=== PATIENT | female | born 1950 | race Caucasian/White ===

== ENCOUNTER 2018-01-13 11:12 | Inpatient (IN) ==
[2018-01-13 12:00] LABS: Baso % (Auto) 0.4 % (0.0-2.0); Hematocrit 29.5 % (35.0-46.0); Mean Corpuscular Hemoglobin 35.1 pg (27.0-34.0); Mean Corpuscular Volume 103.3 fL (80.0-100.0); Mean Platelet Volume 8.6 fL (7.0-11.0); Mono # (Auto) 0.5 th/mm3 (0.0-0.9); Mono % (Auto) 4.1 % (0.0-8.0); Neut # (Auto) 9.4 th/mm3 (1.8-7.7); Neut % (Auto) 86.5 % (16.0-70.0); Platelet Count 233 th/mm3 (150-450); Red Blood Count 2.85 mil/mm3 (4.00-5.30); Red Cell Distribution Width 14.9 % (11.6-17.2); White Blood Count 10.9 th/mm3 (4.0-11.0)
[2018-01-13 12:10] LABS: Activated Partial Thrombo Time 22.8 sec (23.4-31.7); Prothrombin Time 10.5 sec (9.8-11.6)
[2018-01-13 12:25] LABS: Albumin 3.4 g/dL (3.4-5.0); Anion Gap 8 meq/L (5-15); Aspartate Aminotransferase 22 U/L (15-37); Blood Urea Nitrogen 43 mg/dL (7-18); Calcium 8.5 mg/dL (8.5-10.1); Carbon Dioxide 24.8 meq/L (21.0-32.0); Chloride 108 meq/L (98-107); Glomerular Filtration Rate 77 mL/min (>89); Glucose,Random 120 mg/dL (74-106); Potassium 3.9 meq/L (3.5-5.1); Sodium 141 meq/L (136-145)
[2018-01-13 12:26] LABS: Alanine Aminotransferase 35 U/L (10-53)
[2018-01-13 12:28] LABS: Alkaline Phosphatase 51 U/L (45-117); Total Protein 6.3 g/dL (6.4-8.2)
[2018-01-13 13:46] LABS: Bilirubin,Urine Negative (Negative); Clarity,Urine Clear (Clear); Color,Urine Yellow (Yellw/Straw); Glucose,Urine (UA) Negative (Negative); Leukocyte Esterase,Urine Negative (Negative); Mucus,Urine Few /lpf (Occasional); Nitrite,Urine Negative (Negative); Specific Gravity,Urine 1.021 (1.002-1.035)
[2018-01-13] MEDS ORDERED: Pantoprazole Inj 40 MG Vial IV.PUSH ONE (14:55)
--- NOTE | 2018-01-13 15:09 | ED ---
HPI General Chief complaint: Syncope Stated complaint: syncope Time Seen by Provider: 01/13/18 14:54 History of Present Illness HPI narrative: This is a 67-year-old female who presents with her friend for evaluation of syncopal events. The patient is currently on vacation from [place]. She reports that for the past week she has had dark colored stools. This morning at 4:30 AM she was walking to the bathroom when she passed out. 30 minutes later she had another syncopal event when walking to the bathroom. Her friend found her sweaty. There was no seizure activity. The patient was not postictal. The patient reports that 10 years ago she had a gastric ulcer which was bleeding and she had similar dark stools at that time. She reports syncope at that time as well. She is not on any blood thinning medications. She is currently planning on some pain and bruising in the right periorbital region as well as some pain to the coccyx region from when she fell. She is denying any headache, dizziness, lightheadedness, nausea, vomiting, chest pain, shortness of breath, palpitations, abdominal pain. She has no other complaints at this time. Related Data Allergies Allergy/AdvReac Type Severity Reaction Status Date / Time Penicillins Allergy Hives Verified 01/13/18 11:29 Review of Systems ROS: all other systems reviewed are negative [facility] Medical History Medical History Gastric ulcer (Acute) Surgical History Surgical History No history of previous surgery (Acute) Social History Social History Second Hand Smoke Exposure: No Smoking Status: Never smoker How Often Do You Have a Drink Containing Alcohol: Never Recent Travel in [facility] within the Last 8 Weeks: No Recent Out of Country Travel within the Last 8 Weeks: No Exam Narrative Exam Narrative: GENERAL: Well-developed well-nourished female no acute distress SKIN: Warm and dry. Right-sided periorbital ecchymosis is noted. HEAD: Atraumatic. Normocephalic. EYES: Pupils equal and round reactive to light extraocular muscles are intact no proptosis. No scleral icterus. No injection or drainage. ENT: No nasal bleeding or discharge. Mucous membranes pink and moist. Some tenderness to palpation to the lateral right orbit and right lower maxilla region. No bony step-offs. NECK: Trachea midline. No JVD. CARDIOVASCULAR: Regular rate and rhythm. No murmur appreciated. RESPIRATORY: No accessory muscle use. Clear to auscultation. Breath sounds equal bilaterally. GASTROINTESTINAL: Abdomen soft, non-tender, nondistended. Hepatic and splenic margins not palpable. Rectal examination reveals black Hemoccult positive stool. MUSCULOSKELETAL: No obvious deformities. Mild tenderness to palpation to the right sacral region. No ecchymosis. No edema. NEUROLOGICAL: Awake and alert. No obvious cranial nerve deficits. Motor grossly within normal limits. Normal speech. Course Initial Documented Vital Signs Temperature 98.5 F 01/13/18 11:21 Pulse Rate 116 H 01/13/18 11:21 Respiratory Rate 17 01/13/18 11:21 Blood Pressure 127/60 01/13/18 11:21 Pulse Oximetry 100 01/13/18 11:21 Last Documented Vital Signs Temperature 98.5 F 01/13/18 11:21 Pulse Rate 116 H 01/13/18 11:21 Respiratory Rate 17 01/13/18 11:21 Blood Pressure 127/60 01/13/18 11:21 Pulse Oximetry 100 01/13/18 11:21 Medical Decision Making ELIZABETH Attestation ELIZABETH supervised visit: Yes Attestation: I, Dr. Bryant, have reviewed the advance practice practitioner's documentation and am in agreement, met with the patient face to face, made the diagnosis, and the medical decision making was done by me. *My assessment and Findings: Pt with syncope and GI bleed w guaiac positive stool. Pt has hx of gastric ulcer approx 10-15 years prior. No pain in ED. Abdominal is soft without tenderness or mass. Skin warm and dry. Neuro: normal memory and mentation, CNIII-XII normal, moving all extremities normalyll=. MDM Narrative Medical decision making narrative: No dark colored stools for 1 week presents after having 2 syncopal events in the middle of the night. On examination she has black stool which is Hemoccult positive consistent with melena. History of gastric ulcers. Protonix administered. The patient is having pain in her right sacral region from the fall as well as some right-sided facial pain. CT of the brain, facial bones, x-ray of the sacrum coccyx and pelvis have been ordered. Imaging studies reveal no acute abnormalities. Hemoglobin is 10, BUN is 43 certainly suggestive of acute GI bleed. Protonix drip initiated. The patient will be admitted for further evaluation and treatment. Medical Screen Exam Complete: Yes Emergency Medical Condition: Yes Differential Diagnosis Differential Diagnosis: Upper GI bleed, acute anemia, syncope, seizure, dehydration, electrolyte abnormality, closed head injury Lab Data Result diagrams: 01/13/18 11:35 01/13/18 11:35 Lab Results 01/13/18 01/13/18 01/13/18 Range/Units 11:35 11:35 11:35 WBC 10.9 (4.0-11.0) th/mm3 RBC 2.85 L (4.00-5.30) mil/mm3 Hgb 10.0 L (11.6-15.3) gm/dL Hct 29.5 L (35.0-46.0) % MCV 103.3 H (80.0-100.0) fL MCH 35.1 H (27.0-34.0) pg MCHC 34.0 (32.0-36.0) % RDW 14.9 (11.6-17.2) % Plt Count 233 (150-450) th/mm3 MPV 8.6 (7.0-11.0) fL Neut % (Auto) 86.5 H (16.0-70.0) % Lymph % (Auto) 9.0 (9.0-44.0) % [place] % (Auto) 4.1 (0.0-8.0) % Eos % (Auto) 0.0 (0.0-4.0) % Baso % (Auto) 0.4 (0.0-2.0) % Neut # (Auto) 9.4 H (1.8-7.7) th/mm3 Lymph # (Auto) 1.0 (1.0-4.8) th/mm3 [place] # (Auto) 0.5 (0.0-0.9) th/mm3 Eos # (Auto) 0.0 (0.0-0.4) th/mm3 Baso # (Auto) 0.0 (0.0-0.2) th/mm3 WBC Differential . Differential Comment Auto diff final PT 10.5 (9.8-11.6) sec INR 1.0 Ratio APTT 22.8 L (23.4-31.7) sec Sodium 141 (136-145) meq/L Potassium 3.9 (3.5-5.1) meq/L Chloride 108 H (98-107) meq/L Carbon Dioxide 24.8 (21.0-32.0) meq/L Anion Gap 8 (5-15) meq/L BUN 43 H (7-18) mg/dL Creatinine 0.75 (0.50-1.00) mg/dL Estimated GFR 77 L (>89) mL/min Random Glucose 120 H (74-106) mg/dL Calcium 8.5 (8.5-10.1) mg/dL Magnesium (1.5-2.5) mg/dL Total Bilirubin 0.4 (0.2-1.0) mg/dL AST 22 (15-37) U/L ALT 35 (10-53) U/L Alkaline Phosphatase 51 (45-117) U/L Total Creatine Kinase (26-192) U/L Troponin I (0.02-0.05) ng/mL Total Protein 6.3 L (6.4-8.2) g/dL Albumin 3.4 (3.4-5.0) g/dL Urine Color (Yellw/Straw) Urine Clarity (Clear) Urine pH (5.0-8.5) Ur Specific [place] (1.002-1.035) Urine Protein (Neg-Trace) mg/dL Urine Glucose (UA) (Negative) mg/dL Urine Ketones (Negative) mg/dL Urine Occult Blood (Negative) Urine Nitrate (Negative) Urine Bilirubin (Negative) Urine Urobilinogen (Less than 2) mg/dL Ur Leukocyte Esterase (Negative) Urine WBC (0-5) /hpf Urine Mucus (Occasional) /lpf Micro UA Comment Ur Microscopic Review Urine Culture Comments Blood Type Blood Type Recheck Antibody Screen 01/13/18 01/13/18 01/13/18 Range/Units 11:35 12:58 15:04 WBC (4.0-11.0) th/mm3 RBC (4.00-5.30) mil/mm3 Hgb (11.6-15.3) gm/dL Hct (35.0-46.0) % MCV (80.0-100.0) fL MCH (27.0-34.0) pg MCHC (32.0-36.0) % RDW (11.6-17.2) % Plt Count (150-450) th/mm3 MPV (7.0-11.0) fL Neut % (Auto) (16.0-70.0) % Lymph % (Auto) (9.0-44.0) % [place] % (Auto) (0.0-8.0) % Eos % (Auto) (0.0-4.0) % Baso % (Auto) (0.0-2.0) % Neut # (Auto) (1.8-7.7) th/mm3 Lymph # (Auto) (1.0-4.8) th/mm3 [place] # (Auto) (0.0-0.9) th/mm3 Eos # (Auto) (0.0-0.4) th/mm3 Baso # (Auto) (0.0-0.2) th/mm3 WBC Differential Differential Comment PT (9.8-11.6) sec INR Ratio APTT (23.4-31.7) sec Sodium (136-145) meq/L Potassium (3.5-5.1) meq/L Chloride (98-107) meq/L Carbon Dioxide (21.0-32.0) meq/L Anion Gap (5-15) meq/L BUN (7-18) mg/dL Creatinine (0.50-1.00) mg/dL Estimated GFR (>89) mL/min Random Glucose (74-106) mg/dL Calcium (8.5-10.1) mg/dL Magnesium 1.9 (1.5-2.5) mg/dL Total Bilirubin (0.2-1.0) mg/dL AST (15-37) U/L ALT (10-53) U/L Alkaline Phosphatase (45-117) U/L Total Creatine Kinase 100 (26-192) U/L Troponin I Less than 0.02 L (0.02-0.05) ng/mL Total Protein (6.4-8.2) g/dL Albumin (3.4-5.0) g/dL Urine Color Yellow (Yellw/Straw) Urine Clarity Clear (Clear) Urine pH 6.0 (5.0-8.5) Ur Specific [place] 1.021 (1.002-1.035) Urine Protein Negative (Neg-Trace) mg/dL Urine Glucose (UA) Negative (Negative) mg/dL Urine Ketones Trace H (Negative) mg/dL Urine Occult Blood Negative (Negative) Urine Nitrate Negative (Negative) Urine Bilirubin Negative (Negative) Urine Urobilinogen Less than 2 (Less than 2) mg/dL Ur Leukocyte Esterase Negative (Negative) Urine WBC Less than 1 (0-5) /hpf Urine Mucus Few H (Occasional) /lpf Micro UA Comment Culture not ind Ur Microscopic Review Not Reportable Urine Culture Comments Culture not ind Blood Type O Positive Blood Type Recheck Required Antibody Screen Negative Imaging Data Radiologist's impression: Face CT 01/13/18 14:55 CONCLUSION: 1. No acute fracture. Partial sphenoid sinus disease. Incidental note made of grade 1 anterolisthesis of C4 on C5, probably degenerative. Head CT 01/13/18 14:55 CONCLUSION: 1. Negative for acute process . Pelvis X-Ray 01/13/18 15:09 CONCLUSION: Negative for fracture or dislocation. Followup in 7-10 days is suggested if symptoms persist. Sacrum and Coccyx X-Ray 01/13/18 15:09 CONCLUSION: Negative for fracture Discharge Plan Discharge Disposition Patient Disposition: 30 Still Patient Discharge Condition Condition: Stable Discharge Details Diagnosis: Acute upper GI bleed, Syncope Physicians Team ED Provider: Kevin Bryant ED Midlevel Provider: Alirio Alegre Primary Care Provider: Primary Care Candy Enriquez Attending Provider: Jose Maher Status ED Status: Admitted Patient
--- NOTE | 2018-01-13 15:36 | XR ---
EXAM DATE: 01/13/2018 3:28 PM EST AGE/SEX: 67 years / Female INDICATIONS: Trauma to pelvis post fall yesterday CLINICAL DATA: This is the patient's initial encounter. Patient reports that signs and symptoms have been present for 1 day and indicates a pain score of 0/10. MEDICAL/SURGICAL HISTORY: None. None. COMPARISON: No prior exams available for comparison. FINDINGS: Examination of the pelvis demonstrates no evidence of fracture or dislocation. Bony mineralization i s normal. There is no widening of the sacroiliac joints. No foreign body is identified. CONCLUSION: Negative for fracture or dislocation. Followup in 7-10 days is suggested if symptoms persist. Electronically signed by: Christopher Patton MD 01/13/2018 3:35 PM EST
--- NOTE | 2018-01-13 15:38 | XR ---
EXAM DATE: 01/13/2018 3:29 PM EST AGE/SEX: 67 years / Female INDICATIONS: Tailbone pain post fall yesterday CLINICAL DATA: This is the patient's initial encounter. Patient reports that signs and symptoms have been present for 1 day and indicates a pain score of 8/10. MEDICAL/SURGICAL HISTORY: None. None. COMPARISON: [facility] [place], PELVIS AP 1V, 01/13/2018. . FINDINGS: Two-view examination of the sacrum and coccyx demonstrates no evidence of fracture or malalignment. The sacral ala and foramina appear symmetric and intact. The coccyx appears unremarkable. The preve rtebral soft tissues are within normal limits. CONCLUSION: Negative for fracture Electronically signed by: Christopher Patton MD 01/13/2018 3:37 PM EST
--- NOTE | 2018-01-13 15:39 | CT ---
EXAM DATE: 01/13/2018 3:36 PM EST AGE/SEX: 67 years / Female INDICATIONS: Syncope today. Patient fell, bruised right eye and has bump on back of head. CLINICAL DATA: This is the patient's initial encounter. Patient reports that signs and symptoms have been present for 1 day and indicates a pain score of 5/10. MEDICAL/SURGICAL HISTORY: None. None. RADIATION DOSE: 45.79 CTDI (mGy) COMPARISON: No prior exams available for comparison. TECHNIQUE: CT of the head without contrast. Using automated exposure control and adjustment of the mA and/or kV according to patient size, radiation dose was kept as low as reasonably achievable to ob tain optimal diagnostic quality images. DICOM format image data is available electronically for revi ew and comparison. FINDINGS: Cerebrum: The ventricles are normal for age. No evidence of midline shift, mass lesion, hemorrhage or acute infarction. No extraaxial fluid collections are seen. Posterior Fossa: The cerebellum and brainstem are intact. The 4th ventricle is midline. The cerebe llopontine angle is unremarkable. Extracranial: The visualized portion of the orbits is intact. Skull: The calvaria is intact. No evidence of skull fracture. CONCLUSION: 1. Negative for acute process . Electronically signed by: Christopher Patton MD 01/13/2018 3:38 PM EST
[2018-01-13 15:54] LABS: Magnesium 1.9 mg/dL (1.5-2.5)
--- NOTE | 2018-01-13 15:54 | CT ---
EXAM DATE: 01/13/2018 3:44 PM EST AGE/SEX: 67 years / Female INDICATIONS: Syncope. Patient fell, bruised right eye and has bump on back of head. CLINICAL DATA: This is the patient's initial encounter. Patient reports that signs and symptoms have been present for 1 day and indicates a pain score of 5/10. MEDICAL/SURGICAL HISTORY: None. None. RADIATION DOSE: 26.50 CTDI (mGy) COMPARISON: No prior exams available for comparison. TECHNIQUE: Contiguous images in the axial and coronal planes were obtained using helical multirow de tector technique. Using automated exposure control and adjustment of the mA and/or kV according to p atient size, radiation dose was kept as low as reasonably achievable to obtain optimal diagnostic corry lity images. DICOM format image data is available electronically for review and comparison. FINDINGS: No acute fracture identified. Partial opacification of a small septated right anterior sphenoid sinus . Remainder the paranasal sinuses are clear. Globes are intact. No soft tissue masses. CONCLUSION: 1. No acute fracture. Partial sphenoid sinus disease. Incidental note made of grade 1 anterolisthesi s of C4 on C5, probably degenerative. Electronically signed by: Gray Mancilla MD 01/13/2018 3:52 PM EST
[2018-01-13 15:59] LABS: Creatine Kinase 100 U/L (26-192)
[2018-01-13] MEDS: Pantoprazole Inj 80 MG in Sodium Chlor 0.9% Inj 100 ML IV.CONT SCH (16:30)
--- NOTE | 2018-01-13 17:15 | P.HPIM ---
History of Present Illness Primary Care Physician: No Primary Care Physician Chief Complaint: Passed out History of Present Illness: The patient is a 67-year-old female with a past medical history of bleeding ulcer and rheumatoid arthritis who is presenting to the hospital following syncopal episodes. The patient states she woke up early this morning and went to the bathroom where she had dark stools that she described as loose. She says on her way back she fainted and woke up on the floor. She thinks she was unconscious for a few seconds. She denies any pain. She says later on she was going to the bathroom and she fainted again and had a bowel movement where she fell down. She says she lost consciousness again. She denied any seizure activity. She says that she has had a bleeding ulcer in the past. She said she also passed out when she had a bleeding ulcer. She denies using NSAIDs regularly. She does not drink alcohol. She does take methotrexate for rheumatoid arthritis. She says she was taking a proton pump inhibitor for a period of time but that was discontinued a while ago. Inpatient Certification: I certify that the inpatient services were ordered in accordance with Medicare regulations governing the order. This includes certification that hospital inpatient services are reasonable and necessary and in the case of services not specified as inpatient-only under 42 CFR 419.22(n), that they are appropriately provided as inpatient services in accordance to with the 2-midnight benchmark under 43 CFR 412.3(e) Estimated Total Length of Stay (Days): 2 Plans for Post Hospital Care: Home Review of Systems All other systems reviewed negative except as stated in HPI PMFSH - History History Provided By: Patient - Medical History Medical History: Medical History (Last Updated 01/13/18 @ 17:10 by Jose Maher DO) Gastric ulcer Rheumatoid arthritis - Surgical History Surgical History: Surgical History (Last Reviewed 01/13/18 @ 17:10 by Jose Maher DO) No history of previous surgery - Family History Family History: Family History (Last Updated 01/13/18 @ 17:10 by Jose Maher DO) Other Patient denies significant medical history - Social History I have reviewed the patient's Social History: Yes - Tobacco History Second Hand Smoke Exposure: No Smoking Status: Never smoker - Alcohol History How Often Do You Have a Drink Containing Alcohol: Never - Travel History Recent Travel in the [place] Within the Last 8 Weeks: No Recent Travel Out of the Country Within the Last 8 Weeks: No - Immunization History Tetanus Immunization: <5 Years Medications and Allergies Active Medications: Active Medications Acetaminophen (Tylenol) 650 mg PO Q4H PRN PRN Reason: Temp > 100.4, pain 1-2 Pantoprazole Sodium 80 mg/ (Sodium Chloride) 100 mls @ 10 mls/hr IV.CONT CONT SANDY Last Admin: 01/13/18 16:30 Dose: 10 mls/hr Sodium Chloride (Ns Inj) 1,000 mls @ 100 mls/hr IV.CONT .Q10H SANDY Lactulose (Lactulose Liq) 30 ml PO DAILY PRN PRN Reason: SEVERE CONSITIPATION Ondansetron HCl (Zofran Inj) 4 mg IV.PUSH Q6H PRN PRN Reason: NAUSEA OR VOMITING Allergies Allergy/AdvReac Type Severity Reaction Status Date / Time Penicillins Allergy Hives Verified 01/13/18 11:29 Exam Vital signs: Vital Signs 01/13/18 11:21 Temperature 98.5 F Pulse Rate 116 H Respiratory Rate 17 Blood Pressure 127/60 Pulse Oximetry 100 Intake & Output 01/12/18 01/13/18 01/13/18 18:59 06:59 18:59 Weight 54.431 kg Narrative: GENERAL: Well-developed well-nourished female in no acute distress. SKIN: Warm and dry. Right-sided periorbital ecchymosis is noted. HEAD: Atraumatic. Normocephalic. EYES: Pupils equal and round reactive to light extraocular muscles are intact no proptosis. No scleral icterus. No injection or drainage. ENT: No nasal bleeding or discharge. Mucous membranes pink and moist. NECK: Trachea midline. No JVD. CARDIOVASCULAR: Tachycardic. No murmur appreciated. RESPIRATORY: No accessory muscle use. Clear to auscultation. Breath sounds equal bilaterally. GASTROINTESTINAL: Abdomen soft, non-tender, nondistended. Hepatic and splenic margins not palpable. MUSCULOSKELETAL: No obvious deformities. Mild tenderness to palpation to the right sacral region. No ecchymosis. No edema. NEUROLOGICAL: Awake and alert. No obvious cranial nerve deficits. Motor grossly within normal limits. Normal speech. Results - Labs CBC & Chem 7: 01/13/18 11:35 01/13/18 11:35 Labs: Short CBC 01/13/18 Range/Units 11:35 WBC 10.9 (4.0-11.0) th/mm3 Hgb 10.0 L (11.6-15.3) gm/dL Hct 29.5 L (35.0-46.0) % Plt Count 233 (150-450) th/mm3 BMP 01/13/18 11:35 Sodium 141 Potassium 3.9 Chloride 108 H Carbon Dioxide 24.8 BUN 43 H Creatinine 0.75 Calcium 8.5 Cardiac Enzymes 01/13/18 Range/Units 15:04 Total Creatine Kinase 100 (26-192) U/L Troponin I Less than 0.02 L (0.02-0.05) ng/mL Liver Function 01/13/18 Range/Units 11:35 Total Bilirubin 0.4 (0.2-1.0) mg/dL AST 22 (15-37) U/L ALT 35 (10-53) U/L Alkaline Phosphatase 51 (45-117) U/L Albumin 3.4 (3.4-5.0) g/dL Urine 01/13/18 Range/Units 12:58 Urine Color Yellow (Yellw/Straw) Urine Clarity Clear (Clear) Urine pH 6.0 (5.0-8.5) Ur Specific [place] 1.021 (1.002-1.035) Urine Protein Negative (Neg-Trace) mg/dL Urine Glucose (UA) Negative (Negative) mg/dL - Imaging Impressions Face CT 01/13/18 14:55 CONCLUSION: 1. No acute fracture. Partial sphenoid sinus disease. Incidental note made of grade 1 anterolisthesis of C4 on C5, probably degenerative. Head CT 01/13/18 14:55 CONCLUSION: 1. Negative for acute process . Pelvis X-Ray 01/13/18 15:09 CONCLUSION: Negative for fracture or dislocation. Followup in 7-10 days is suggested if symptoms persist. Sacrum and Coccyx X-Ray 01/13/18 15:09 CONCLUSION: Negative for fracture Caprini VTE Risk Assessment Caprini VTE Risk Assessment: Moderate/High Risk (score >= 2) Caprini Risk Assessment Model: Point Value = 1 Point Value = 2 Point Value = 3 Point Value = 5 Age 41-60 Minor surgery BMI > 25 kg/m2 Swollen legs Varicose veins or History of unexplained or recurrent spontaneous Oral contraceptives or hormone replacement Sepsis (< 1 month) Serious lung disease, including pneumonia (< 1 month) Abnormal pulmonary function Acute myocardial infarction Congestive heart failure (< 1 month) History of inflammatory bowel disease Medical patient at bed rest Age 61-74 Arthroscopic surgery Major open surgery (> 45 min) Laparoscopic surgery (> 45 min) Malignancy Confined to bed (> 72 hours) Immobilizing plaster cast Central venous access Age >= 75 History of VTE Family history of VTE Factor V Leiden Prothrombin [id number] Lupus anticoagulant Anticardiolipin antibodies Elevated serum homocysteine Heparin-induced thrombocytopenia Other congenital or acquired thrombophilia Stroke (< 1 month) Elective arthroplasty Hip, pelvis, or leg fracture Acute spinal cord injury (< 1 month) Prophylaxis Regimen: Total Risk Factor Score Risk Level Prophylaxis Regimen 0-1 Low Early ambulation 2 Moderate Order ONE of the following: *Sequential Compression Device (SCD) *Heparin 5000 units SQ BID 3-4 Higher Order ONE of the following medications: *Heparin 5000 units SQ TID *Enoxaparin/Lovenox 40 mg SQ daily (WT < 150 kg, CrCl > 30 mL/min) *Enoxaparin/Lovenox 30 mg SQ daily (WT < 150 kg, CrCl > 10-29 mL/min) *Enoxaparin/Lovenox 30 mg SQ BID (WT < 150 kg, CrCl > 30 mL/min) AND/OR *Sequential Compression Device (SCD) 5 or more Highest Order ONE of the following medications: *Heparin 5000 units SQ TID (Preferred with Epidurals) *Enoxaparin/Lovenox 40 mg SQ daily (WT < 150 kg, CrCl > 30 mL/min) *Enoxaparin/Lovenox 30 mg SQ daily (WT < 150 kg, CrCl > 10-29 mL/min) *Enoxaparin/Lovenox 30 mg SQ BID (WT < 150 kg, CrCl > 30 mL/min) AND *Sequential Compression Device (SCD) Assessment and Plan - Plan GI bleed/ Syncope The patient had dark stools that were Hemoccult positive in the emergency department. She has had a bleeding ulcer in the past and has had syncopal episodes associated with it. She is on methotrexate. -PPI gtt. -NPO with IVFs. -follow CBC and transfuse as needed. -GI consult pending. Tachycardia Likely secondary to anemia and GI bleed. -Check an EKG. -IV fluids. -Monitor on telemetry. RA On methotrexate weekly. -hold methotrexate. PPx: SCDs. Pharmacotherapy contraindicated in the setting of GI bleed.
[2018-01-13] MEDS: Sod Chloride 0.9% Inj 1,000 ML IV.CONT SCH (19:52)
[2018-01-13 22:43] LABS: Hematocrit 25.8 % (35.0-46.0); Hemoglobin 8.6 gm/dL (11.6-15.3); Mean Corpuscular HGB Conc 33.5 % (32.0-36.0); Mean Corpuscular Hemoglobin 33.9 pg (27.0-34.0); Mean Corpuscular Volume 101.3 fL (80.0-100.0); Mean Platelet Volume 8.4 fL (7.0-11.0); Platelet Count 215 th/mm3 (150-450); Red Blood Count 2.54 mil/mm3 (4.00-5.30); Red Cell Distribution Width 15.3 % (11.6-17.2)
[2018-01-14] MEDS: Pantoprazole Inj 80 MG in Sodium Chlor 0.9% Inj 100 ML IV.CONT SCH ×3 (02:01→21:58)
[2018-01-14 05:35] LABS: Baso # (Auto) 0.1 th/mm3 (0.0-0.2); Baso % (Auto) 0.8 % (0.0-2.0); Eos # (Auto) 0.1 th/mm3 (0.0-0.4); Eos % (Auto) 1.4 % (0.0-4.0); Hematocrit 24.5 % (35.0-46.0); Hemoglobin 8.2 gm/dL (11.6-15.3); Lymph # (Auto) 1.2 th/mm3 (1.0-4.8); Lymph % (Auto) 18.6 % (9.0-44.0); Mean Corpuscular HGB Conc 33.6 % (32.0-36.0); Mean Corpuscular Hemoglobin 34.5 pg (27.0-34.0); Mean Corpuscular Volume 102.5 fL (80.0-100.0); Mean Platelet Volume 8.3 fL (7.0-11.0); Mono # (Auto) 0.7 th/mm3 (0.0-0.9); Mono % (Auto) 10.6 % (0.0-8.0); Neut # (Auto) 4.6 th/mm3 (1.8-7.7); Neut % (Auto) 68.6 % (16.0-70.0); Platelet Count 203 th/mm3 (150-450); Red Blood Count 2.39 mil/mm3 (4.00-5.30); Red Cell Distribution Width 14.9 % (11.6-17.2); White Blood Count 6.7 th/mm3 (4.0-11.0)
[2018-01-14] MEDS: Sod Chloride 0.9% Inj 1,000 ML IV.CONT SCH (05:36)
[2018-01-14 06:32] LABS: Alanine Aminotransferase 26 U/L (10-53); Albumin 2.7 g/dL (3.4-5.0); Alkaline Phosphatase 37 U/L (45-117); Anion Gap 8 meq/L (5-15); Aspartate Aminotransferase 23 U/L (15-37); Blood Urea Nitrogen 22 mg/dL (7-18); Calcium 7.9 mg/dL (8.5-10.1); Chloride 113 meq/L (98-107); Glomerular Filtration Rate 83 mL/min (>89); Glucose,Random 81 mg/dL (74-106); Potassium 3.9 meq/L (3.5-5.1); Sodium 146 meq/L (136-145)
[2018-01-14] MEDS: Acetaminophen 325 MG Tablet PO PRN ×2 (09:49→19:27)
[2018-01-14] MEDS ORDERED: Sodium Chlor 0.9% Inj 250 ML IV.SIG SCH (10:00)
--- NOTE | 2018-01-14 10:21 | P.PNIM ---
Subjective Interval history: Patient reports she has had a headache this morning. No abdominal pain. She has not had a bowel movement since coming into the hospital. No complaint of nausea or vomiting Physical Exam Vital signs: Last Vital Signs Temp 98.4 F 01/14/18 08:00 Pulse 89 01/14/18 08:00 Resp 18 01/14/18 08:00 BP 99/51 L 01/14/18 08:00 Pulse Ox 98 01/14/18 08:00 Intake & Output 01/12/18 01/13/18 01/14/18 01/15/18 06:59 06:59 06:59 06:59 Intake Total 1100 / 1100 Balance 1100 / 1100 Weight 54.5 kg Narrative: GENERAL: This is a well-nourished, well-developed patient, in no apparent distress. CARDIOVASCULAR: Regular rate and rhythm without murmurs, gallops, or rubs. RESPIRATORY: Clear to auscultation. Breath sounds equal bilaterally. No wheezes , rales, or rhonchi. GASTROINTESTINAL: Abdomen soft, non-tender, nondistended. Normal active bowel sounds MUSCULOSKELETAL: Extremities without clubbing, cyanosis, or edema. NEURO: Alert & Oriented x4 to person, place, time, situation. Moves all ext x4 Results Labs CBC & Chem 7: 01/14/18 05:19 01/14/18 05:19 Imaging Imaging: Impressions Face CT 01/13/18 14:55 CONCLUSION: 1. No acute fracture. Partial sphenoid sinus disease. Incidental note made of grade 1 anterolisthesis of C4 on C5, probably degenerative. Head CT 01/13/18 14:55 CONCLUSION: 1. Negative for acute process . Pelvis X-Ray 01/13/18 15:09 CONCLUSION: Negative for fracture or dislocation. Followup in 7-10 days is suggested if symptoms persist. Sacrum and Coccyx X-Ray 01/13/18 15:09 CONCLUSION: Negative for fracture Assessment and Plan (1) Acute upper GI bleed: Code(s): K92.2 - Gastrointestinal hemorrhage, unspecified Status: Acute (2) Anemia: Code(s): D64.9 - Anemia, unspecified Status: Acute Plan 67-year-old white female presents to emergency room with complaints of dark stools and syncope episode 1. Active GI bleed with drop in hemoglobin overnight with acute anemia Continue with Protonix drip. Transfuse 2 units of packed red blood cells, continue IV fluids for supportive care. Monitor hemoglobin hematocrit, GI consult to evaluate for EGD. Keep n.p.o. status. 2. Acute anemia due to GI bleed-monitor hemoglobin and transfuse 2 units of packed red blood cells today. 3. History of rheumatoid arthritis -hold methotrexate 4. DVT prophylaxisbilateral SCDs, pharmacologic anticoagulation contraindicated in the setting of GI bleed 5. Hypernatremiadue to normal saline will change to half-normal saline. Progress Note: Quality VTE Deep Vein Thrombosis/Pulmonary Embolism Present on Admission: No
--- NOTE | 2018-01-14 11:07 | P.CONGI ---
History of Present Illness Consult date: 01/14/18 Consult reason: GI bleed Melena stools Chief complaint: Upper GI Bleed, Syncope History of Present Illness: This patient is a 67-year-old female with past medical history of gastric ulcer , rheumatoid arthritis for which she takes methotrexate. Surgical history includes umbilical hernia repair 66. She presented to the [facility] following 2 syncopal episodes. Upon consultation, patient reports she noted dark stools 1 week ago. She states her stools were loose. Patient states that she attributed loose dark stools to increased intake of green leafy vegetables while on vacation. Patient endorses associated sensation of incomplete defecation for 1 week. Patient states she has history of bleeding ulcer and had last EGD done 15 years ago with repair for same. Patient denies taking any PPI at this time and reports she has not been on some for "quite a while". Denies dysphagia, abdominal pain, nausea or vomiting. Patient states she had 2 syncopal episodes on 01/12/2018 while returning to her bedroom from bathroom after having a loose dark stool. Patient denies any use of NSAIDs or aspirin. Denies use of tobacco or alcohol products. Denies any known family history for gastrointestinal disorders. Patient endorses last colonoscopy done 3 years ago-normal findings per patient. <Margie Duong - Last Filed: 01/14/18 10:56> Chief complaint: Upper GI Bleed, Syncope <Danna Ayala - Last Filed: 01/14/18 14:45> Review of Systems All other systems reviewed negative except as stated in HPI <Margie Duong - Last Filed: 01/14/18 10:56> PMFSH - History History Provided By: Patient - Medical History Medical History: Medical History (Last Updated 01/13/18 @ 17:10 by Jose Maher DO) Gastric ulcer Rheumatoid arthritis - Surgical History Surgical History: Surgical History (Last Reviewed 01/13/18 @ 17:10 by Jose Maher DO) No history of previous surgery - Family History Family History: Family History (Last Updated 01/13/18 @ 17:10 by Jose Maher DO) Other Patient denies significant medical history - Tobacco History Second Hand Smoke Exposure: No Tobacco Use In Past 30 Days: No Smoking Status: Never smoker - Alcohol History How Often Do You Have a Drink Containing Alcohol: Monthly or less - Substance Use History Substance History: No History of Abuse - Travel History Recent Travel in the [place] Within the Last 8 Weeks: No Recent Travel Out of the Country Within the Last 8 Weeks: No - Immunization History Tetanus Immunization: <5 Years Hx Influenza Vaccine This Season: Yes <Margie Duong - Last Filed: 01/14/18 10:56> - Medical History Medical History: Medical History (Last Updated 01/13/18 @ 17:10 by Jose Maher DO) Gastric ulcer Rheumatoid arthritis - Surgical History Surgical History: Surgical History (Last Reviewed 01/13/18 @ 17:10 by Jose Maher DO) No history of previous surgery - Family History Family History: Family History (Last Updated 01/13/18 @ 17:10 by Jose Maher DO) Other Patient denies significant medical history <Danna Ayala - Last Filed: 01/14/18 14:45> Medications and Allergies Active Medications: Active Medications Acetaminophen (Tylenol) 650 mg PO Q4H PRN PRN Reason: Temp > 100.4, pain 1-2 Last Admin: 01/14/18 09:49 Dose: 650 mg Pantoprazole Sodium 80 mg/ (Sodium Chloride) 100 mls @ 10 mls/hr IV.CONT CONT SANDY Last Admin: 01/14/18 02:01 Dose: 10 mls/hr Sodium Chloride (Ns Inj) 250 mls @ 15 mls/hr IV.SIG ONCE SANDY Stop: 01/15/18 02:39 Sodium Chloride (1/2 Normal Saline Inj) 1,000 mls @ 84 mls/hr IV.CONT .[id number] SANDY Lactulose (Lactulose Liq) 30 ml PO DAILY PRN PRN Reason: SEVERE CONSITIPATION Ondansetron HCl (Zofran Inj) 4 mg IV.PUSH Q6H PRN PRN Reason: NAUSEA OR VOMITING <Margie Duong - Last Filed: 01/14/18 10:56> Active Medications: Active Medications Acetaminophen (Tylenol) 650 mg PO Q4H PRN PRN Reason: Temp > 100.4, pain 1-2 Last Admin: 01/14/18 09:49 Dose: 650 mg Pantoprazole Sodium 80 mg/ (Sodium Chloride) 100 mls @ 10 mls/hr IV.CONT CONT SANDY Last Admin: 01/14/18 11:43 Dose: 10 mls/hr Sodium Chloride (Ns Inj) 250 mls @ 15 mls/hr IV.SIG ONCE SANDY Stop: 01/15/18 02:39 Sodium Chloride (1/2 Normal Saline Inj) 1,000 mls @ 84 mls/hr IV.CONT .[id number] SANDY Lactulose (Lactulose Liq) 30 ml PO DAILY PRN PRN Reason: SEVERE CONSITIPATION Ondansetron HCl (Zofran Inj) 4 mg IV.PUSH Q6H PRN PRN Reason: NAUSEA OR VOMITING <Hemaidan,Ammar - Last Filed: 01/14/18 14:45> Allergies Allergy/AdvReac Type Severity Reaction Status Date / Time Penicillins Allergy Hives Verified 01/13/18 18:10 Home Medications Medication Instructions Recorded Confirmed Type methotrexate 20 mg/m2 PO QWEEK 01/13/18 01/13/18 History Exam Vital signs: Vital Signs 01/13/18 11:21 01/13/18 20:00 01/13/18 22:50 Temperature 98.5 F 98.2 F Pulse Rate 116 H 110 H 91 H Respiratory Rate 17 20 Blood Pressure 127/60 108/59 L Pulse Oximetry 100 97 01/14/18 00:00 01/14/18 04:00 01/14/18 06:23 Temperature 98.6 F 98.1 F Pulse Rate 87 81 80 Respiratory Rate 18 20 Blood Pressure 105/60 94/52 L Pulse Oximetry 97 96 01/14/18 08:00 Temperature 98.4 F Pulse Rate 89 Respiratory Rate 18 Blood Pressure 99/51 L Pulse Oximetry 98 Intake & Output 01/13/18 01/14/18 01/14/18 18:59 06:59 18:59 Intake Total 1100 / 1100 Balance 1100 / 1100 Weight 54.431 kg 54.5 kg Intake: IV 1100 / 1100 Protonix Inj 80 MG In NS Inj 100 / 100 100 ML @ 10 mls/hr IV.CONT CONT SANDY Rx#:[id number] NS Inj 1,000 ML @ 100 mls/hr IV 1000 / 1000 .CONT .Q10H SANDY Rx#:[id number] Other: # Voids 3 Date of Last Bowel Movement 01/13/18 - Constitutional no acute distress - Routine HEENT Exam Head: Present: normocephalic Eye: Present: periorbital ecchymosis - Routine Respiratory Exam Present: CTA bilaterally. Absent: accessory muscle use - Routine Cardiovascular Exam Present: S1, S2 - Routine Abdominal Exam Present: soft, normoactive bowel sounds. Absent: tenderness, distended, guarding, firm - Routine Extremities Exam Absent: edema - Routine Skin Exam Present: dry, warm. Absent: pallor - Routine Neurological Exam Present: alert, oriented X3 <Duong,Margie - Last Filed: 01/14/18 10:56> Vital signs: Vital Signs 01/13/18 20:00 01/13/18 22:50 01/14/18 00:00 Temperature 98.2 F 98.6 F Pulse Rate 110 H 91 H 87 Respiratory Rate 20 18 Blood Pressure 108/59 L 105/60 Pulse Oximetry 97 97 01/14/18 04:00 01/14/18 06:23 01/14/18 08:00 Temperature 98.1 F 98.4 F Pulse Rate 81 80 89 Respiratory Rate 20 18 Blood Pressure 94/52 L 99/51 L Pulse Oximetry 96 98 01/14/18 12:00 01/14/18 12:23 01/14/18 12:42 Temperature 98.4 F 98 F 98.1 F Pulse Rate 79 77 78 Respiratory Rate 18 14 18 Blood Pressure 108/55 L 108/55 L 97/52 L Pulse Oximetry 98 97 01/14/18 14:00 Temperature 97.8 F Pulse Rate 80 Respiratory Rate 18 Blood Pressure 97/56 L Pulse Oximetry 98 Intake & Output 01/13/18 01/14/18 01/14/18 18:59 06:59 18:59 Intake Total 1100 / 1100 100 / 100 Balance 1100 / 1100 100 / 100 Weight 54.431 kg 54.5 kg Intake: IV 1100 / 1100 100 / 100 Protonix Inj 80 MG In NS Inj 100 / 100 100 / 100 100 ML @ 10 mls/hr IV.CONT CONT SANDY Rx#:[id number] NS Inj 1,000 ML @ 100 mls/hr IV 1000 / 1000 .CONT .Q10H SANDY Rx#:[id number] Intake (Blood Product) Amt 0 / 0 Rbc As-3 Leukoreduced Unit 0 / 0 [id number] Other: Other Intake Source Rbc As-3 Leukoreduced Unit Saline Solution [id number] # Voids 3 Date of Last Bowel Movement 01/13/18 <Danna Ayala - Last Filed: 01/14/18 14:45> Results - Labs CBC & Chem 7: 01/14/18 05:19 01/14/18 05:19 Labs: Laboratory Results - last 24 hr 01/13/18 01/13/18 01/13/18 11:35 11:35 11:35 WBC 10.9 RBC 2.85 L Hgb 10.0 L Hct 29.5 L MCV 103.3 H MCH 35.1 H MCHC 34.0 RDW 14.9 Plt Count 233 MPV 8.6 Neut % (Auto) 86.5 H Lymph % (Auto) 9.0 [place] % (Auto) 4.1 Eos % (Auto) 0.0 Baso % (Auto) 0.4 Neut # (Auto) 9.4 H Lymph # (Auto) 1.0 [place] # (Auto) 0.5 Eos # (Auto) 0.0 Baso # (Auto) 0.0 WBC Differential . Differential Comment Auto diff final PT 10.5 INR 1.0 APTT 22.8 L Sodium 141 Potassium 3.9 Chloride 108 H Carbon Dioxide 24.8 Anion Gap 8 BUN 43 H Creatinine 0.75 Estimated GFR 77 L Random Glucose 120 H Calcium 8.5 Magnesium Total Bilirubin 0.4 AST 22 ALT 35 Alkaline Phosphatase 51 Total Creatine Kinase Troponin I Total Protein 6.3 L Albumin 3.4 Urine Color Urine Clarity Urine pH Ur Specific [place] Urine Protein Urine Glucose (UA) Urine Ketones Urine Occult Blood Urine Nitrate Urine Bilirubin Urine Urobilinogen Ur Leukocyte Esterase Urine WBC Urine Mucus Micro UA Comment Ur Microscopic Review Urine Culture Comments Blood Type Blood Type Recheck Antibody Screen MTS Gel Crossmatch 01/13/18 01/13/18 01/13/18 11:35 12:58 15:04 WBC RBC Hgb Hct MCV MCH MCHC RDW Plt Count MPV Neut % (Auto) Lymph % (Auto) [place] % (Auto) Eos % (Auto) Baso % (Auto) Neut # (Auto) Lymph # (Auto) [place] # (Auto) Eos # (Auto) Baso # (Auto) WBC Differential Differential Comment PT INR APTT Sodium Potassium Chloride Carbon Dioxide Anion Gap BUN Creatinine Estimated GFR Random Glucose Calcium Magnesium 1.9 Total Bilirubin AST ALT Alkaline Phosphatase Total Creatine Kinase 100 Troponin I Less than 0.02 L Total Protein Albumin Urine Color Yellow Urine Clarity Clear Urine pH 6.0 Ur Specific [place] 1.021 Urine Protein Negative Urine Glucose (UA) Negative Urine Ketones Trace H Urine Occult Blood Negative Urine Nitrate Negative Urine Bilirubin Negative Urine Urobilinogen Less than 2 Ur Leukocyte Esterase Negative Urine WBC Less than 1 Urine Mucus Few H Micro UA Comment Culture not ind Ur Microscopic Review Not Reportable Urine Culture Comments Culture not ind Blood Type O Positive Blood Type Recheck Required Antibody Screen Negative MTS Gel Crossmatch 01/13/18 01/14/18 01/14/18 22:17 05:19 05:19 WBC 8.0 6.7 RBC 2.54 L 2.39 L Hgb 8.6 L 8.2 L Hct 25.8 L 24.5 L MCV 101.3 H 102.5 H MCH 33.9 34.5 H MCHC 33.5 33.6 RDW 15.3 14.9 Plt Count 215 203 MPV 8.4 8.3 Neut % (Auto) 68.6 Lymph % (Auto) 18.6 [place] % (Auto) 10.6 H Eos % (Auto) 1.4 Baso % (Auto) 0.8 Neut # (Auto) 4.6 Lymph # (Auto) 1.2 [place] # (Auto) 0.7 Eos # (Auto) 0.1 Baso # (Auto) 0.1 WBC Differential . Differential Comment Auto diff final PT INR APTT Sodium 146 H Potassium 3.9 Chloride 113 H Carbon Dioxide 25.0 Anion Gap 8 BUN 22 H Creatinine 0.70 Estimated GFR 83 L Random Glucose 81 Calcium 7.9 L Magnesium Total Bilirubin 0.4 AST 23 ALT 26 Alkaline Phosphatase 37 L Total Creatine Kinase Troponin I Total Protein 5.0 L D Albumin 2.7 L D Urine Color Urine Clarity Urine pH Ur Specific [place] Urine Protein Urine Glucose (UA) Urine Ketones Urine Occult Blood Urine Nitrate Urine Bilirubin Urine Urobilinogen Ur Leukocyte Esterase Urine WBC Urine Mucus Micro UA Comment Ur Microscopic Review Urine Culture Comments Blood Type Blood Type Recheck Antibody Screen MTS Gel Crossmatch 01/14/18 09:49 WBC RBC Hgb Hct MCV MCH MCHC RDW Plt Count MPV Neut % (Auto) Lymph % (Auto) [place] % (Auto) Eos % (Auto) Baso % (Auto) Neut # (Auto) Lymph # (Auto) [place] # (Auto) Eos # (Auto) Baso # (Auto) WBC Differential Differential Comment PT INR APTT Sodium Potassium Chloride Carbon Dioxide Anion Gap BUN Creatinine Estimated GFR Random Glucose Calcium Magnesium Total Bilirubin AST ALT Alkaline Phosphatase Total Creatine Kinase Troponin I Total Protein Albumin Urine Color Urine Clarity Urine pH Ur Specific [place] Urine Protein Urine Glucose (UA) Urine Ketones Urine Occult Blood Urine Nitrate Urine Bilirubin Urine Urobilinogen Ur Leukocyte Esterase Urine WBC Urine Mucus Micro UA Comment Ur Microscopic Review Urine Culture Comments Blood Type Blood Type Recheck Antibody Screen MTS Gel Crossmatch See Detail - Imaging Impressions Face CT 01/13/18 14:55 CONCLUSION: 1. No acute fracture. Partial sphenoid sinus disease. Incidental note made of grade 1 anterolisthesis of C4 on C5, probably degenerative. Head CT 01/13/18 14:55 CONCLUSION: 1. Negative for acute process . Pelvis X-Ray 01/13/18 15:09 CONCLUSION: Negative for fracture or dislocation. Followup in 7-10 days is suggested if symptoms persist. Sacrum and Coccyx X-Ray 01/13/18 15:09 CONCLUSION: Negative for fracture <Margie Duong - Last Filed: 01/14/18 10:56> - Labs CBC & Chem 7: 01/14/18 05:19 01/14/18 05:19 Labs: Laboratory Results - last 24 hr 01/13/18 01/13/18 01/14/18 15:04 22:17 05:19 WBC 8.0 6.7 RBC 2.54 L 2.39 L Hgb 8.6 L 8.2 L Hct 25.8 L 24.5 L MCV 101.3 H 102.5 H MCH 33.9 34.5 H MCHC 33.5 33.6 RDW 15.3 14.9 Plt Count 215 203 MPV 8.4 8.3 Neut % (Auto) 68.6 Lymph % (Auto) 18.6 [place] % (Auto) 10.6 H Eos % (Auto) 1.4 Baso % (Auto) 0.8 Neut # (Auto) 4.6 Lymph # (Auto) 1.2 [place] # (Auto) 0.7 Eos # (Auto) 0.1 Baso # (Auto) 0.1 WBC Differential . Differential Comment Auto diff final Sodium Potassium Chloride Carbon Dioxide Anion Gap BUN Creatinine Estimated GFR Random Glucose Calcium Magnesium 1.9 Total Bilirubin AST ALT Alkaline Phosphatase Total Creatine Kinase 100 Troponin I Less than 0.02 L Total Protein Albumin MTS Gel Crossmatch 01/14/18 01/14/18 05:19 09:49 WBC RBC Hgb Hct MCV MCH MCHC RDW Plt Count MPV Neut % (Auto) Lymph % (Auto) [place] % (Auto) Eos % (Auto) Baso % (Auto) Neut # (Auto) Lymph # (Auto) [place] # (Auto) Eos # (Auto) Baso # (Auto) WBC Differential Differential Comment Sodium 146 H Potassium 3.9 Chloride 113 H Carbon Dioxide 25.0 Anion Gap 8 BUN 22 H Creatinine 0.70 Estimated GFR 83 L Random Glucose 81 Calcium 7.9 L Magnesium Total Bilirubin 0.4 AST 23 ALT 26 Alkaline Phosphatase 37 L Total Creatine Kinase Troponin I Total Protein 5.0 L D Albumin 2.7 L D MTS Gel Crossmatch See Detail - Imaging Impressions Face CT 01/13/18 14:55 CONCLUSION: 1. No acute fracture. Partial sphenoid sinus disease. Incidental note made of grade 1 anterolisthesis of C4 on C5, probably degenerative. Head CT 01/13/18 14:55 CONCLUSION: 1. Negative for acute process . Pelvis X-Ray 01/13/18 15:09 CONCLUSION: Negative for fracture or dislocation. Followup in 7-10 days is suggested if symptoms persist. Sacrum and Coccyx X-Ray 01/13/18 15:09 CONCLUSION: Negative for fracture <Danna Ayala - Last Filed: 01/14/18 14:45> Assessment and Plan (1) Acute upper GI bleed Status: Acute Code(s): K92.2 - Gastrointestinal hemorrhage, unspecified - Plan This patient is a 67-year-old female with past medical history of gastric ulcer , rheumatoid arthritis for which she takes methotrexate. Surgical history includes umbilical hernia repair 66. She presented to the [facility] following 2 syncopal episodes. Upon consultation, patient reports she noted dark stools 1 week ago. She states her stools were loose. Patient states that she attributed loose dark stools to increased intake of green leafy vegetables while on vacation. Patient endorses associated sensation of incomplete defecation for 1 week. Patient states she has history of bleeding ulcer and had last EGD done 15 years ago with repair for same. Patient denies taking any PPI at this time and reports she has not been on some for "quite a while". Denies dysphagia, abdominal pain, nausea or vomiting. Denies hematemesis. Patient states she had 2 syncopal episodes on 01/12/2018 while returning to her bedroom from bathroom after having a loose dark stool. Patient denies any use of NSAIDs or aspirin. Denies use of tobacco or alcohol products. Denies any known family history for gastrointestinal disorders. Patient endorses last colonoscopy done 3 years ago-normal findings per patient. GI bleed Patient endorses 1 week history of noticing dark stools. Syncopal episode x2 prior to admission. States history of gastric ulcer, on no PPIs Last EGD 15 years ago done to to stop bleeding gastric ulcer Hemoglobin 8.2 hematocrit 24.5 platelet count 203 Plan -N.p.o. -Obtain consent for EGD -EGD planned for today -Monitor for bleeding -Transfuse if needed -Continue PPI -Antiemetics PRN -Avoid anticoagulants, NSAIDs, aspirin -Monitor hemoglobin and hematocrit -Supportive care -Further recommendations to follow based on patient status and findings This patient has been seen by myself and Dr. Ayala and this note is written on his behalf - Attending Attestation Dr. Ayala <Margie Duong - Last Filed: 01/14/18 10:56> (1) Acute upper GI bleed Status: Acute Code(s): K92.2 - Gastrointestinal hemorrhage, unspecified - Plan Patient was seen and examined, agree with above note, patient will need upper endoscopy on an urgent basis meanwhile we will continue monitoring H&H with packed RBC as needed <Danna Ayala - Last Filed: 01/14/18 14:45>
--- NOTE | 2018-01-14 14:49 | P.PCN ---
Date of procedure: 01/14/18 Procedure: THANK YOU FOR THE REFERRAL Indication; GI bleed, anemia, syncope Procedure Performed; upper endoscopy with bleeding controlled by injection of epinephrine, cautery, clipping of ulcer, biopsy of the ulcer After informing the patient about procedure and possible complications consent was signed. history and physical were updated. Patient was taken to the procedure room and placed in position. Time out was completed. Adequate sedation was performed by anesthesia provider. Upper Endoscopy, the scope was placed in the mouth advanced under video guide to the second portion of the duodenum, then the scope was withdrawal to the stomach and retro-flexion was performed, the scope was withdrawal to the esophagus then out of the mouth without any immediate complication Findings; Esophagus: Normal Stomach ulcer in the proximal stomach was significant irregularity around it nodularity, the ulcer was actively bleeding with the vessel pumping blood out of it this was cauterized with gold probe, injected with 4 cc of epinephrine, 3 clips were placed with good control at the end of the case Duodenum normal Recommendations; 1- Supportive care 2- ok to transfer to recovery area then discharge per protocol 3-no NSAIDs 4-n.p.o. now 5- E[place] to follow on the ulcer 6-Protonix 40 mg daily 7-monitor H&H with packed RBC as needed
[2018-01-14] MEDS: Sodium Chloride 0.45 % Inj 1,000 ML IV.CONT SCH ×2 (16:07→22:03)
--- NOTE | 2018-01-14 17:49 | ECG ---
Date Performed: 01/13/2018 Time Performed: 15:02:18 PTAGE: 67 years EKG: SINUS TACHYCARDIA WITH SHORT NC INTERVAL ABNORMAL RHYTHM ECG NO PREVIOUS TRACING DOCTOR: Messi Robles Interpretating Date/Time 01/14/2018 17:45:42
[2018-01-15] MEDS: Acetaminophen 325 MG Tablet PO PRN (04:03)
[2018-01-15] MEDS: Sodium Chloride 0.45 % Inj 1,000 ML IV.CONT SCH ×2 (04:04→11:42)
[2018-01-15 07:06] LABS: Baso # (Auto) 0.1 th/mm3 (0.0-0.2); Baso % (Auto) 1.2 % (0.0-2.0); Eos # (Auto) 0.3 th/mm3 (0.0-0.4); Eos % (Auto) 3.9 % (0.0-4.0); Hematocrit 28.2 % (35.0-46.0); Hemoglobin 9.9 gm/dL (11.6-15.3); Lymph # (Auto) 1.2 th/mm3 (1.0-4.8); Lymph % (Auto) 16.6 % (9.0-44.0); Mean Corpuscular HGB Conc 35.2 % (32.0-36.0); Mean Corpuscular Hemoglobin 34.9 pg (27.0-34.0); Mean Corpuscular Volume 99.1 fL (80.0-100.0); Mean Platelet Volume 8.6 fL (7.0-11.0); Mono # (Auto) 0.6 th/mm3 (0.0-0.9); Mono % (Auto) 8.5 % (0.0-8.0); Neut # (Auto) 4.9 th/mm3 (1.8-7.7); Neut % (Auto) 69.8 % (16.0-70.0); Platelet Count 193 th/mm3 (150-450); Red Blood Count 2.85 mil/mm3 (4.00-5.30); Red Cell Distribution Width 16.6 % (11.6-17.2); White Blood Count 7.1 th/mm3 (4.0-11.0)
--- NOTE | 2018-01-15 08:44 | P.PNIM ---
Subjective Interval history: Reports that she is hungry. There is no abdominal pain. No bloody stools. Wants to go home and wants to eat if able. Physical Exam Vital signs: Last Vital Signs Temp 97.9 F 01/15/18 03:58 Pulse 73 01/15/18 04:00 Resp 18 01/15/18 06:25 BP 98/52 L 01/15/18 03:58 Pulse Ox 99 01/15/18 03:58 Intake & Output 01/13/18 01/14/18 01/15/18 01/16/18 06:59 06:59 06:59 06:59 Intake Total 1100 / 1100 2650 / 2650 Balance 1100 / 1100 2650 / 2650 Weight 54.5 kg 55.2 kg Narrative: GENERAL: This is a well-nourished, well-developed patient, in no apparent distress. SKIN: Right periorbital ecchymosis unchanged. CARDIOVASCULAR: Regular rate and rhythm without murmurs, gallops, or rubs. RESPIRATORY: Clear to auscultation. Breath sounds equal bilaterally. No wheezes , rales, or rhonchi. GASTROINTESTINAL: Abdomen soft, non-tender, nondistended. Normal active bowel sounds MUSCULOSKELETAL: Extremities without clubbing, cyanosis, or edema. NEURO: Alert & Oriented x4 to person, place, time, situation. Moves all ext x4 Results Labs CBC & Chem 7: 01/15/18 06:19 01/14/18 05:19 Assessment and Plan (1) Acute upper GI bleed: Code(s): K92.2 - Gastrointestinal hemorrhage, unspecified Status: Acute Plan 67-year-old white female presents to emergency room with complaints of dark stools and syncope episode 1. Active GI bleed with drop in hemoglobin with acute anemia Transition Protonix drip to p.o. Protonix. Status post transfuse 2 units of packed red blood cells with repeat hemoglobin 9.9, continue IV fluids for supportive care. Monitor hemoglobin hematocrit, GI performed EGD on 01/14 with findings of gastric ulcer status post cauterization Will start clear liquids this morning and advance as tolerated. Discharge to home once cleared by GI. 2. Acute anemia due to GI bleed-monitor hemoglobin and status post transfuse 2 units of packed red blood cells yesterday, today's hemoglobin 9.9 3. History of rheumatoid arthritis -hold methotrexate 4. DVT prophylaxisbilateral SCDs, pharmacologic anticoagulation contraindicated in the setting of GI bleed 5. Hypernatremiadue to normal saline will change to half-normal saline. Discharge patient to home Condition on discharge: Improved Regular Diet as tolerated Ad Luann activity Rx written: Protonix 40 mg PO Daily Follow-up with primary care physician Progress Note: Quality VTE Deep Vein Thrombosis/Pulmonary Embolism Present on Admission: No
--- NOTE | 2018-01-15 18:52 | P.PNGI ---
Subjective Interval history: Patient sitting up at bedside Post EGD with cauterization Tolerating clear liquid diet No reported bleeding <Margie Duong - Last Filed: 01/15/18 18:48> Physical Exam Vital signs: Vital Signs 01/14/18 19:29 01/14/18 20:00 01/14/18 21:58 Temperature 98.4 F Pulse Rate 76 81 Respiratory Rate 18 18 Blood Pressure 109/55 L Pulse Oximetry 99 01/14/18 23:58 01/15/18 00:00 01/15/18 03:58 Temperature 98.0 F 97.9 F Pulse Rate 73 77 71 Respiratory Rate 18 18 Blood Pressure 98/54 L 98/52 L Pulse Oximetry 98 99 01/15/18 04:00 01/15/18 06:25 01/15/18 08:00 Temperature 98.2 F Pulse Rate 73 79 Respiratory Rate 18 20 Blood Pressure 97/52 L Pulse Oximetry 98 01/15/18 12:00 01/15/18 16:00 Temperature 98.5 F 98.5 F Pulse Rate 74 74 Respiratory Rate 20 20 Blood Pressure 97/52 L 97/52 L Pulse Oximetry 97 97 Intake & Output 01/14/18 01/15/18 01/15/18 18:59 06:59 18:59 Intake Total 1450 / 1450 1200 / 1200 1350 / 1350 Balance 1450 / 1450 1200 / 1200 1350 / 1350 Weight 55.2 kg 54.7 kg Intake: IV 1100 / 1100 1100 / 1100 1350 / 1350 Protonix Inj 80 MG In NS Inj 100 / 100 100 / 100 100 / 100 100 ML @ 10 mls/hr IV.CONT CONT [facility] Rx#:[id number] NS Inj 1,000 ML @ 100 mls/hr IV 1000 / 1000 .CONT .Q10H [facility] Rx#:[id number] 1/2 Normal Saline Inj 1,000 ML 1000 / 1000 1000 / 1000 @ 84 mls/hr IV.CONT .[id number] [facility] Rx#:[id number] NS Inj 250 ML @ 15 mls/hr IV. 250 / 250 SIG ONCE [facility] Rx#:[id number] Oral 100 / 100 Anesthesia Amount 350 / 350 Intake (Blood Product) Amt 0 / 0 0 / 0 Rbc As-3 Leukoreduced Unit 0 / 0 [id number] Rbc As-3 Leukoreduced Unit 0 / 0 [id number] Other: Other Intake Source Rbc As-3 Leukoreduced Unit Saline Solution [id number] # Voids 4 Date of Last Bowel Movement 01/13/18 01/13/18 01/13/18 Weight On Admission 55.2 kg - Constitutional no acute distress - Routine HEENT Exam Head: Present: normocephalic - Routine Respiratory Exam Absent: accessory muscle use - Routine Abdominal Exam Present: soft, normoactive bowel sounds. Absent: tenderness, guarding, firm - Routine Extremities Exam Absent: edema - Routine Skin Exam Present: dry, warm. Absent: pallor - Routine Neurological Exam Present: alert, oriented X3 - Routine Psychiatric Exam Present: normal affect, cooperative <Duong,Margie - Last Filed: 01/15/18 18:48> Vital signs: Vital Signs 01/14/18 19:29 01/14/18 20:00 01/14/18 21:58 Temperature 98.4 F Pulse Rate 76 81 Respiratory Rate 18 18 Blood Pressure 109/55 L Pulse Oximetry 99 01/14/18 23:58 01/15/18 00:00 01/15/18 03:58 Temperature 98.0 F 97.9 F Pulse Rate 73 77 71 Respiratory Rate 18 18 Blood Pressure 98/54 L 98/52 L Pulse Oximetry 98 99 01/15/18 04:00 01/15/18 06:25 01/15/18 08:00 Temperature 98.2 F Pulse Rate 73 79 Respiratory Rate 18 20 Blood Pressure 97/52 L Pulse Oximetry 98 01/15/18 12:00 01/15/18 16:00 Temperature 98.5 F 98.5 F Pulse Rate 74 74 Respiratory Rate 20 20 Blood Pressure 97/52 L 97/52 L Pulse Oximetry 97 97 Intake & Output 01/15/18 01/15/18 01/16/18 06:59 18:59 06:59 Intake Total 1200 / 1200 1350 / 1350 Balance 1200 / 1200 1350 / 1350 Weight 55.2 kg 54.7 kg Intake: IV 1100 / 1100 1350 / 1350 Protonix Inj 80 MG In NS Inj 100 / 100 100 / 100 100 ML @ 10 mls/hr IV.CONT CONT [facility] Rx#:[id number] 1/2 Normal Saline Inj 1,000 ML 1000 / 1000 1000 / 1000 @ 84 mls/hr IV.CONT .[id number] [facility] Rx#:[id number] NS Inj 250 ML @ 15 mls/hr IV. 250 / 250 SIG ONCE [facility] Rx#:[id number] Oral 100 / 100 Intake (Blood Product) Amt 0 / 0 Rbc As-3 Leukoreduced Unit 0 / 0 [id number] Other: # Voids 4 Date of Last Bowel Movement 01/13/18 01/13/18 Weight On Admission 55.2 kg <Danna Ayala - Last Filed: 01/15/18 19:22> Results - Labs CBC & Chem 7: 01/15/18 15:30 01/14/18 05:19 Laboratory Results - last 24 hr 01/14/18 01/15/18 01/15/18 09:49 06:19 15:30 WBC 7.1 RBC 2.85 L Hgb 9.9 L 9.6 L Hct 28.2 L MCV 99.1 MCH 34.9 H MCHC 35.2 RDW 16.6 Plt Count 193 MPV 8.6 Neut % (Auto) 69.8 Lymph % (Auto) 16.6 Randolph % (Auto) 8.5 H Eos % (Auto) 3.9 Baso % (Auto) 1.2 Neut # (Auto) 4.9 Lymph # (Auto) 1.2 Randolph # (Auto) 0.6 Eos # (Auto) 0.3 Baso # (Auto) 0.1 WBC Differential . Differential Comment Auto diff final MTS Gel Crossmatch See Detail <DuongMargie - Last Filed: 01/15/18 18:48> - Labs CBC & Chem 7: 01/15/18 15:30 01/14/18 05:19 Laboratory Results - last 24 hr 01/14/18 01/15/18 01/15/18 09:49 06:19 15:30 WBC 7.1 RBC 2.85 L Hgb 9.9 L 9.6 L Hct 28.2 L MCV 99.1 MCH 34.9 H MCHC 35.2 RDW 16.6 Plt Count 193 MPV 8.6 Neut % (Auto) 69.8 Lymph % (Auto) 16.6 Randolph % (Auto) 8.5 H Eos % (Auto) 3.9 Baso % (Auto) 1.2 Neut # (Auto) 4.9 Lymph # (Auto) 1.2 Randolph # (Auto) 0.6 Eos # (Auto) 0.3 Baso # (Auto) 0.1 WBC Differential . Differential Comment Auto diff final MTS Gel Crossmatch See Detail <Danna Ayala - Last Filed: 01/15/18 19:22> Assessment and Plan (1) Acute upper GI bleed Status: Acute Code(s): K92.2 - Gastrointestinal hemorrhage, unspecified - Plan 01/15/2018 Patient post EGD with cauterization and clip placement for gastric bleeding ulcer 01/14/2018 EGD revealed the following findings---Esophagus: Normal Stomach ulcer in the proximal stomach was significant irregularity around it nodularity, the ulcer was actively bleeding with the vessel pumping blood out of it this was cauterized with gold probe, injected with 4 cc of epinephrine, 3 clips were placed with good control at the end of the case Duodenum normal Hemoglobin 9.6 Plan -Avoid NSAIDs and anticoagulants -Continue PPI -Monitor hemoglobin hematocrit -Patient advise to have EGD in 6 weeks when she returns home to follow-up on the ulcer -Supportive care This patient has been seen by myself and Dr. Ayala and this note was written on his behalf - Attending Attestation Dr. Ayala <Margie Duong - Last Filed: 01/15/18 18:48> (1) Acute upper GI bleed Status: Acute Code(s): K92.2 - Gastrointestinal hemorrhage, unspecified - Plan Patient is doing well, no significant problem and no active bleeding, continue monitoring hemoglobin, advance diet as tolerated, most likely she can go home tomorrow <Danna Ayala - Last Filed: 01/15/18 19:22>
[2018-01-16 00:28] VITALS: RESP 18
[2018-01-16 08:30] LABS: Hematocrit 29.1 % (35.0-46.0); Hemoglobin 10.3 gm/dL (11.6-15.3); Mean Corpuscular HGB Conc 35.5 % (32.0-36.0); Mean Corpuscular Hemoglobin 34.8 pg (27.0-34.0); Mean Platelet Volume 8.2 fL (7.0-11.0); Platelet Count 227 th/mm3 (150-450); Red Blood Count 2.97 mil/mm3 (4.00-5.30); Red Cell Distribution Width 16.8 % (11.6-17.2)
--- NOTE | 2018-01-16 10:43 | P.DS ---
DS: Providers Date of admission: 01/13/18 16:24 Primary care physician: No Primary Care Physician Consults: 01/13/18 17:02 Consult to Gastroenterology Routine Consulting Provider: Danna Ayala Reason for Consultation: GIB Notified:: Service Spoke with:: ROGELIO Date Notified:: 01/13/18 Time Notified:: 17:08 Ordering Provider: ILIA 01/14/18 12:06 HUB Only Consult Order Routine Consulting Provider: [facility],Insurance Brief History from admission: The patient is a 67-year-old female with a past medical history of bleeding ulcer and rheumatoid arthritis who is presenting to the hospital following syncopal episodes. The patient states she woke up early this morning and went to the bathroom where she had dark stools that she described as loose. She says on her way back she fainted and woke up on the floor. She thinks she was unconscious for a few seconds. She denies any pain. She says later on she was going to the bathroom and she fainted again and had a bowel movement where she fell down. She says she lost consciousness again. She denied any seizure activity. She says that she has had a bleeding ulcer in the past. She said she also passed out when she had a bleeding ulcer. She denies using NSAIDs regularly. She does not drink alcohol. She does take methotrexate for rheumatoid arthritis. She says she was taking a proton pump inhibitor for a period of time but that was discontinued a while ago. DS: Diagnosis Discharge Diagnosis (1) Acute upper GI bleed: Status: Acute (2) Anemia: Status: Acute (3) Syncope: Status: Acute (4) Gastric ulcer: Status: Acute DS: Summary 67-year-old white female on chronic methotrexate was admitted for acute syncope episode along with upper GI bleed. Her hemoglobin dropped during the hospitalization from 10-8.2 and 2 units of packed red blood cell was transfused. She was seen by the GI service Dr. Ayala who performed a upper endoscopy which showed gastric ulcers in which cauterization along with clips were placed. Patient will be placed on bowel rest overnight and slowly started on clear liquids and advance to regular diet prior to discharge. Her hemoglobin remained stable after the transfusion. She was initially started on a IV Protonix drip which was switched over to p.o. Protonix upon discharge. Her acute syncope episode was attributed to her acute anemia hypovolemia. Her chronic methotrexate was on hold in the hospitalization and instructions were to continue to hold medication until she discuss further with her primary care physician. At this time, patient has gained maximum benefit from hospitalization and ready to be transitioned home. Time Spent with Patient Total time spent providing and/or coordinating discharge services: Less than 30 minutes Quality: VTE Deep Vein Thrombosis/Pulmonary Embolism Present on Admission: No Exam Narrative Exam Narrative: GENERAL: This is a well-nourished, well-developed patient, in no apparent distress. CARDIOVASCULAR: Regular rate and rhythm without murmurs, gallops, or rubs. RESPIRATORY: Clear to auscultation. Breath sounds equal bilaterally. No wheezes , rales, or rhonchi. GASTROINTESTINAL: Abdomen soft, non-tender, nondistended. Normal active bowel sounds MUSCULOSKELETAL: Extremities without clubbing, cyanosis, or edema. NEURO: Alert & Oriented x4 to person, place, time, situation. Moves all ext x4 Results Procedures completed during hospitalization: 01/[address] Ayala Labs on day of discharge: Labs from last 24 hours 01/16/18 01/15/18 01/14/18 06:16 15:30 09:49 WBC 7.0 RBC 2.97 L Hgb 10.3 L 9.6 L Hct 29.1 L MCV 98.0 MCH 34.8 H MCHC 35.5 RDW 16.8 Plt Count 227 MPV 8.2 MTS Gel Crossmatch See Detail Impressions ITS Impressions Face CT 01/13/18 14:55 CONCLUSION: 1. No acute fracture. Partial sphenoid sinus disease. Incidental note made of grade 1 anterolisthesis of C4 on C5, probably degenerative. Head CT 01/13/18 14:55 CONCLUSION: 1. Negative for acute process . Pelvis X-Ray 01/13/18 15:09 CONCLUSION: Negative for fracture or dislocation. Followup in 7-10 days is suggested if symptoms persist. Sacrum and Coccyx X-Ray 01/13/18 15:09 CONCLUSION: Negative for fracture Discharge Plan Discharge Disposition Patient Disposition: 01 Discharge Home Discharge Condition Condition: Good Discharge Order Discharge Orders: Discharge Order (Routine); Ordered 01/16/18 Ordered By: Gabriella Colon Discharge Details Anticipated Discharge Date: 01/15/18 Discharge Comment: DC when cleared by GI and tolerating diet Physicians Team Primary Care Provider: Primary Care Candy Enriquez Attending Provider: Gabriella Colon Other Providers: Danna Ayala ; [facility],Insurance Rxs /Orders / Referrals /Forms Prescriptions: New pantoprazole 40 mg Tablet,Delayed Release (Dr/Ec) 40 mg PO DAILY Qty: 30 RF: 0 Discontinued methotrexate 2.5 mg/mL Solution 20 mg/m2 PO QWEEK RF: 0 Referrals: Primary Care Candy Enriquez [Primary Care Provider] - See Instructions (CALL [phone] 8AM THE DAY YOU LIKE TO BE SEEN [address] [place] [address]) Post Discharge Care Plan Care Plan Goals: Your Health Problems: GI bleed Goals to Promote Your Health: * To prevent worsening of your condition * To maintain your health at the optimal level Directions to Meet Your Goals: * Take your medications as prescribed * Follow your dietary instruction * Follow activity as directed * Keep your appointments as scheduled * Take your immunizations and boosters as scheduled * If your symptoms worsen call your PCP * If no PCP go to Urgent Care or Emergency Room Smoking is dangerous to your health. Avoid second hand smoke. You may reach the 24-hour crisis hotline for domestic abuse at . Status ED Status: Left Department
[2018-01-16 11:01] VITALS: BP 121/63; PULSE 82; TEMP 98; O2SAT 99
--- NOTE | 2018-01-16 11:56 | P.PNGI ---
Subjective Interval history: Patient sitting up in bed eating breakfast meal No bleeding noted or reported Patient denies abdominal pain nausea or vomiting Possible discharge home today Physical Exam Vital signs: Vital Signs 01/15/18 12:00 01/15/18 16:00 01/15/18 20:00 Temperature 98.5 F 98.5 F 98.7 F Pulse Rate 74 74 84 Respiratory Rate 20 20 20 Blood Pressure 97/52 L 97/52 L 113/55 L Pulse Oximetry 97 97 97 01/16/18 00:00 01/16/18 04:00 01/16/18 08:00 Temperature 98.1 F 98.1 F 98.0 F Pulse Rate 77 74 82 Respiratory Rate 18 18 18 Blood Pressure 112/61 116/57 L 121/63 Pulse Oximetry 99 97 99 Intake & Output 01/15/18 01/16/18 01/16/18 18:59 06:59 18:59 Intake Total 1700 / 1700 960 / 960 Balance 1700 / 1700 960 / 960 Weight 54.7 kg 55 kg Intake: IV 1350 / 1350 Protonix Inj 80 MG In NS Inj 100 / 100 100 ML @ 10 mls/hr IV.CONT CONT [facility] Rx#:[id number] 1/2 Normal Saline Inj 1,000 ML 1000 / 1000 @ 84 mls/hr IV.CONT .[id number] [facility] Rx#:[id number] NS Inj 250 ML @ 15 mls/hr IV. 250 / 250 SIG ONCE [facility] Rx#:[id number] Oral 960 / 960 Anesthesia Amount 350 / 350 Intake (Blood Product) Amt 0 / 0 Rbc As-3 Leukoreduced Unit 0 / 0 [id number] Other: # Voids 4 3 Date of Last Bowel Movement 01/13/18 01/13/18 01/16/18 # Bowel Movements 1 Weight On Admission 55.2 kg - Constitutional no acute distress - Routine HEENT Exam Head: Present: normocephalic - Routine Respiratory Exam Present: CTA bilaterally. Absent: accessory muscle use - Routine Cardiovascular Exam Present: RRR - Routine Abdominal Exam Present: soft, normoactive bowel sounds. Absent: tenderness, distended, guarding, firm - Routine Skin Exam Present: dry, warm - Routine Neurological Exam Present: alert, oriented X3 - Routine Psychiatric Exam Present: normal affect, cooperative Results - Labs CBC & Chem 7: 01/16/18 06:16 01/14/18 05:19 Laboratory Results - last 24 hr 01/14/18 01/15/18 01/16/18 09:49 15:30 06:16 WBC 7.0 RBC 2.97 L Hgb 9.6 L 10.3 L Hct 29.1 L MCV 98.0 MCH 34.8 H MCHC 35.5 RDW 16.8 Plt Count 227 MPV 8.2 MTS Gel Crossmatch See Detail - Procedures 01/[address] Ayala Assessment and Plan (1) Acute upper GI bleed Status: Acute Code(s): K92.2 - Gastrointestinal hemorrhage, unspecified - Plan 01/15/2018 Patient post EGD with cauterization and clip placement for gastric bleeding ulcer 01/14/2018 EGD revealed the following findings---Esophagus: Normal Stomach ulcer in the proximal stomach was significant irregularity around it nodularity, the ulcer was actively bleeding with the vessel pumping blood out of it this was cauterized with gold probe, injected with 4 cc of epinephrine, 3 clips were placed with good control at the end of the case Duodenum normal Hemoglobin 9.6 01/16/2018 Acute upper GI bleed Patient post EGD with cauterization and clip placement on 01/14/2018 No noted bleeding Patient tolerating breakfast meal well-regular diet Denies nausea or vomiting, denies abdominal pain Hemoglobin 10.3 hematocrit 29.1 Plan -Avoid NSAIDs and anticoagulants -Continue PPI Protonix 40 mg p.o. daily -Patient agrees to follow-up with GI out of state at home in [place] -Patient agrees to have EGD in 6 weeks to follow-up on gastric ulcer -Stable for discharge from GI standpoint This patient has been seen by myself and Dr. Hogan and this note is written on his behalf - Attending Attestation Dr. Hogan
== END 2018-01-16 12:11 | disposition home or self-care (01) | DRG 378 ==
LOC: NEPE 11:12 → NEDA 16:24 → N05 18:50
PROVIDERS: ADMIT Family Medicine; ATTEND Family Medicine
PROC: PANENDO (2018-01-14 14:12)
DX: S00.11XA Contusion of right eyelid and periocular area, initial encounter; K25.4 Chronic or unspecified gastric ulcer with hemorrhage; R51 Headache; D62 Acute posthemorrhagic anemia; Z88.0 Allergy status to penicillin; W18.39XA Other fall on same level, initial encounter; E87.0 Hyperosmolality and hypernatremia; Y92.091 Bathroom in other non-institutional residence as the place of occurrence of the external cause; M06.9 Rheumatoid arthritis, unspecified; R15.0 Incomplete defecation; R55 Syncope and collapse
CPT/HCPCS: 36430; 43270; 70450; 70486; 72170; 72220; 80053; 81001; 82550; 83735; 84484; 85018; 85025; 85027; 85610; 85730; 86850; 86900; 86901; 86923; 88305; 88312; 93005; 99285; C9113; J2704; J7030; J7050; P9016